=== PATIENT | female | born 1950 | race Caucasian/White ===

== ENCOUNTER 2019-08-28 12:59 | Emergency (ER) | payer BC ==
[~2019-08-28] VITALS: Ht 152.4 cm; Wt 68.0 kg
[2019-08-28] MEDS ORDERED: DOXYCYCLINE 10100 MG PO ×2 (14:32→14:45)
[2019-08-28 15:10] VITALS: BP 138/76
== END 2019-08-28 15:11 | disposition home or self-care (01) ==
LOC: M.ERS 12:59
DX: S01.01XA Laceration without foreign body of scalp, initial encounter (principal); W11.XXXA Fall on and from ladder, initial encounter; Y93.89 Activity, other specified; Y92.098 Other place in other non-institutional residence as the place of occurrence of the external cause; Y99.8 Other external cause status

== ENCOUNTER 2019-09-07 12:27 | Emergency (ER) | payer BC ==
[~2019-09-07] VITALS: Ht 152.4 cm; Wt 68.0 kg
[~2019-09-07 12:27] MED LIST: DOXYCYCLINE 10100 MG PO
== END 2019-09-07 13:05 | disposition home or self-care (01) ==
LOC: M.ERS 12:27
DX: S01.01XD Laceration without foreign body of scalp, subsequent encounter (principal); X58.XXXD Exposure to other specified factors, subsequent encounter